=== PATIENT | male | born 1955 | race Caucasian/White ===

== ENCOUNTER 2022-06-03 05:52 | Inpatient (IN) | payer BC, MEDICARE ==
[2022-06-03] MEDS ORDERED: Albuterol/Ipratropium 3.0-0.5 MG/3 ML Neb Soln NEB ONE ×2 (05:57→06:13)
[2022-06-03] MEDS ORDERED: Dexamethasone 4 MG/ML SDV IVPUSH STA (06:12)
[2022-06-03] MEDS ORDERED: Dexamethasone 4 MG/ML SDV ONE (06:13)
[2022-06-03] MEDS ORDERED: Racepinephrine 2.25% 0.5 ML Neb Soln NEB ONE (06:15)
[2022-06-03] MEDS ORDERED: Racepinephrine 2.25% 0.5 ML Neb Soln ONE (06:16)
[2022-06-03] MEDS: Sodium Chloride 0.9% Inhalation Soln 3 ML Neb INH PRN ×2 (06:21→06:28)
[2022-06-03] MEDS: Albuterol/Ipratropium 3.0-0.5 MG/3 ML Neb Soln ONE (06:21)
[2022-06-03] MEDS ORDERED: Sodium Chloride 0.9% 1,000 ML IV SCH (06:45)
[2022-06-03 06:56] LABS: CORONAVIRUS COVID-19 NAA NEGATIVE (NEGATIVE)
[2022-06-03] MEDS ORDERED: LORazepam 2 MG/ML SDV IVPUSH ONE (06:59)
[2022-06-03] MEDS ORDERED: Levofloxacin/Dextrose 5%-Water 750 MG in Premix Bag 1 BAG IV ONE (07:01)
[2022-06-03] MEDS ORDERED: Sodium Bicarbonate 100 MEQ in Dextrose 5% in Water 100 ML IV ONE ×2 (08:37)
[2022-06-03] MEDS ORDERED: Sodium Chloride 0.9% 1,000 ML IV ONE (09:35)
[2022-06-03] MEDS: Sodium Chloride 0.9% 1,000 ML IV SCH ×3 (12:09→23:36)
[2022-06-03] MEDS ORDERED: Iopamidol 755 Mg/ML 100 ML Bottle IV ONE (12:57)
[2022-06-03] MEDS ORDERED: Sodium Chloride 0.9% 50 ML IV ONE (12:57)
[2022-06-03] MEDS ORDERED: Sodium Chloride 0.9% 10 ML Syringe FLUSH ONE (12:57)
[2022-06-03] MEDS: LORazepam 0.5 MG Tab PO PRN (14:45)
[2022-06-03] MEDS: cefTRIAXone 1 GM in Sodium Chloride 0.9% 50 ML IV SCH (17:03)
[2022-06-03] MEDS: Prazosin 1 MG Cap PO SCH (20:44)
[2022-06-04] MEDS: LORazepam 0.5 MG Tab PO PRN (02:37)
[2022-06-04] MEDS ORDERED: Sodium Chloride 0.9% 1,000 ML IV SCH (04:15)
[2022-06-04] MEDS: Albuterol/Ipratropium 3.0-0.5 MG/3 ML Neb Soln ONE (06:41)
[2022-06-04] MEDS: Prazosin 1 MG Cap PO SCH ×2 (08:21→20:29)
[2022-06-04] MEDS: Levofloxacin/Dextrose 5%-Water 750 MG in Premix Bag 1 BAG IV SCH (08:21)
[2022-06-04] MEDS: Aspirin 81 MG Tab.EC PO SCH (08:22)
[2022-06-04] MEDS: Sodium Chloride 0.9% 1,000 ML IV SCH ×2 (08:29→23:26)
[2022-06-04] MEDS ORDERED: Magnesium Hydroxide 400 MG/5 ML Susp 30 ML Cup PO PRN (09:16)
[2022-06-04] MEDS ORDERED: Ondansetron 4 MG/2 ML SDV IV PRN (09:16)
[2022-06-04] MEDS ORDERED: Melatonin 3 MG Tab PO PRN (09:16)
[2022-06-04] MEDS ORDERED: Acetaminophen 325 MG Tab PO PRN (09:16)
[2022-06-04] MEDS ORDERED: Ondansetron 4 MG Tab.DIS PO PRN (09:16)
[2022-06-04] MEDS ORDERED: LORazepam 0.5 MG Tab PO PRN (10:52)
[2022-06-04] MEDS: oxyCODONE 5 MG Tab PO PRN ×2 (11:34→15:34)
[2022-06-04] MEDS: LORazepam 1 MG Tab PO PRN (15:34)
[2022-06-04] MEDS: cefTRIAXone 1 GM in Sodium Chloride 0.9% 50 ML IV SCH (17:27)
[2022-06-04] MEDS ORDERED: Furosemide 40 MG/4 ML VIAL IVPUSH ONE (18:36)
[2022-06-04] MEDS: Morphine 2 MG/ML SYRINGE IVPUSH PRN ×2 (20:09→23:26)
[2022-06-05] MEDS: LORazepam 1 MG Tab PO PRN ×2 (00:31→05:32)
[2022-06-05] MEDS: Morphine 2 MG/ML SYRINGE IVPUSH PRN ×4 (02:09→14:19)
[2022-06-05] MEDS: Levofloxacin/Dextrose 5%-Water 750 MG in Premix Bag 1 BAG IV SCH (07:16)
[2022-06-05] MEDS: Aspirin 81 MG Tab.EC PO SCH (12:47)
[2022-06-05] MEDS: Prazosin 1 MG Cap PO SCH ×2 (12:47→20:49)
[2022-06-05] MEDS: Sodium Chloride 0.9% 1,000 ML IV SCH ×2 (13:56→21:00)
[2022-06-05] MEDS: cefTRIAXone 1 GM in Sodium Chloride 0.9% 50 ML IV SCH (16:57)
[2022-06-06] MEDS: Sodium Chloride 0.9% 1,000 ML IV SCH (03:38)
[2022-06-06] MEDS: Levofloxacin/Dextrose 5%-Water 750 MG in Premix Bag 1 BAG IV SCH (07:21)
[2022-06-06] MEDS ORDERED: Doxycycline 100 MG in Sodium Chloride 0.9% 100 ML IV SCH (08:15)
[2022-06-06] MEDS: Aspirin 81 MG Tab.EC PO SCH (09:35)
[2022-06-06] MEDS: Prazosin 1 MG Cap PO SCH ×2 (09:35→20:36)
[2022-06-06] MEDS ORDERED: guaiFENesin/Dextromethorphan 100-10 MG/5 ML Soln 10 ML Cup PO PRN (11:13)
[2022-06-06] MEDS: cefTRIAXone 1 GM in Sodium Chloride 0.9% 50 ML IV SCH (17:53)
[2022-06-06] MEDS: Doxycycline 100 MG in Sodium Chloride 0.9% 100 ML IV SCH (20:36)
[2022-06-07] MEDS ORDERED: Potassium Chloride 20 MEQ Tab.ER PO ONE (08:00)
[2022-06-07] MEDS: Doxycycline 100 MG in Sodium Chloride 0.9% 100 ML IV SCH ×2 (08:12→20:15)
[2022-06-07] MEDS: Prazosin 1 MG Cap PO SCH ×2 (08:14→20:14)
[2022-06-07] MEDS: Aspirin 81 MG Tab.EC PO SCH (08:14)
[2022-06-07] MEDS ORDERED: Loperamide 2 MG Cap PO PRN (13:52)
[2022-06-07] MEDS: cefTRIAXone 1 GM in Sodium Chloride 0.9% 50 ML IV SCH (16:31)
[2022-06-08] MEDS: Doxycycline 100 MG in Sodium Chloride 0.9% 100 ML IV SCH (07:59)
[2022-06-08] MEDS: Prazosin 1 MG Cap PO SCH (07:59)
[2022-06-08] MEDS: Aspirin 81 MG Tab.EC PO SCH (07:59)
== END 2022-06-08 13:49 | disposition home or self-care (01) | DRG 460 ==
LOC: JP.ED 05:52 → JP.ICU 13:16 → UNDOADMIN 14:55 → JP.ICU 14:55
PROVIDERS: ADMIT Internal Medicine; ATTEND Hospitalist
DX: N17.9 Acute kidney failure, unspecified (principal); J10.00 Influenza due to other identified influenza virus with unspecified type of pneumonia; J96.01 Acute respiratory failure with hypoxia; E87.20 Acidosis, unspecified; M62.82 Rhabdomyolysis; Z20.822 Contact with and (suspected) exposure to COVID-19; J15.9 Unspecified bacterial pneumonia; E86.0 Dehydration; Z79.82 Long term (current) use of aspirin; Z79.899 Other long term (current) drug therapy; Z79.52 Long term (current) use of systemic steroids; Z88.8 Allergy status to other drugs, medicaments and biological substances
CPT/HCPCS: 0241U; 36415; 36600; 71045; 71045-26; 71275; 71275-26; 80048; 80179; 80307; 81001; 82009; 82550; 82803; 83605; 83735; 84145; 84484; 85025; 85027; 85379; 86140; 87040; 87077; 87186; 94640; 97162-GP; 97530-GP; A9270-GY; J0696; J1100; J1940; J1956; J2060; J2270; J3490; J7030; J7060; J7620; Q9967

== ENCOUNTER 2023-12-31 18:28 | Emergency (ER) | payer BC, MEDICARE | END 2023-12-31 20:42 | disposition home or self-care (01) | LOC: JP.ED 18:28 | DX: L03.113 Cellulitis of right upper limb (principal); I10 Essential (primary) hypertension; Z88.5 Allergy status to narcotic agent; Z88.8 Allergy status to other drugs, medicaments and biological substances; Z91.011 Allergy to milk products; Z79.82 Long term (current) use of aspirin; Z79.899 Other long term (current) drug therapy | CPT/HCPCS: 99283 ==